=== PATIENT | female | born 1985 | race Caucasian/White ===

== ENCOUNTER 2018-03-21 07:42 | Emergency (ER) | payer MEDICAID ==
[~2018-03-21] VITALS: Ht 157.5 cm; Wt 156.9 kg
[2018-03-21 07:48] VITALS: BP 145/96
[2018-03-21] MEDS ORDERED: LEVOFLOXACIN 750 MG/D5W PREMIX 150 ML IV ONE (08:05)
[2018-03-21] MEDS ORDERED: NACL 0.9% 1,000 ML IV ONE (08:05)
[2018-03-21 08:24] LABS: BASOPHILS # (AUTO) 0.1 K/uL (0.00-0.22); BASOPHILS % (AUTO) 0.9 % (0.0-2.0); EOSINOPHILS # (AUTO) 0.1 K/uL (0-0.4); EOSINOPHILS % (AUTO) 0.8 % (0.0-4.0); HEMATOCRIT 36.9 % (36-48); HEMOGLOBIN 12.1 g/dL (12.0-16.0); LYMPHOCYTES # (AUTO) 1.5 K/uL (2.5-16.5); LYMPHOCYTES % (AUTO) 20.6 % (20.5-51.1); MEAN CORPUSCULAR HEMOGLOBIN 27 pg (27-31); MEAN CORPUSCULAR HGB CONC 33 g/dL (33-37); MEAN CORPUSCULAR VOLUME 80.5 fL (80-94); MONOCYTES # (AUTO) 0.5 K/uL (0.8-1.0); MONOCYTES % (AUTO) 6.4 % (1.7-9.3); NEUTROPHILS # (AUTO) 5.4 K/uL (1.8-7.7); NEUTROPHILS % (AUTO) 71.3 % (42.2-75.2); PLATELET COUNT (AUTO) 183 K/uL (140-450); RED BLOOD CELL COUNT(AUTO) 4.58 MIL/uL (4.20-5.40); WHITE BLOOD COUNT (AUTO) 7.5 K/uL (4.8-10.8)
[2018-03-21 08:30] LABS: ANION GAP 12.6 (8-16); CARBON DIOXIDE 24.2 mmol/L (21-32); CREATININE 0.6 mg/dL (0.6-1.3); POTASSIUM 3.8 mmol/L (3.5-5.1)
[2018-03-21 08:36] LABS: ALBUMIN 2.5 g/dL (3.4-5.0); TOTAL BILIRUBIN 0.4 mg/dL (0.0-1.0)
[2018-03-21 08:45] LABS: BILIRUBIN,URINE NEGATIVE (NEGATIVE); BLOOD, URINE 1+ (NEGATIVE); COLOR,URINE YELLOW (YELLOW); LEUKOCYTE ESTERASE ,URINE NEGATIVE (NEGATIVE); NITRITE, URINE NEGATIVE (NEGATIVE); PH,URINE 6.5 (5.0-9.0); UGLUCOSE NEGATIVE (NEGATIVE)
[2018-03-21 08:46] LABS: APPEARANCE,URINE SLIGHTLY HAZY (CLEAR)
[2018-03-21 08:49] LABS: RBC,URINE 3-10 (FEW) /HPF (0-5); WBC,URINE 0-5 (RARE) /HPF (0-5)
[2018-03-21 09:54] VITALS: BP 144/97
== END 2018-03-21 09:54 | disposition home or self-care (01) ==
LOC: MED 07:42
DX: L03.115 Cellulitis of right lower limb (principal); E11.9 Type 2 diabetes mellitus without complications; R74.0 Nonspecific elevation of levels of transaminase and lactic acid dehydrogenase [LDH]
CPT/HCPCS: 36415; 80053; 81001; 83605; 85025; 87040; 96365; 96366; 99285; J1956; 99284

== ENCOUNTER 2019-08-27 20:48 | Emergency (ER) | payer MEDICAID ==
[~2019-08-27] VITALS: Ht 160 cm; Wt 145.1 kg
[2019-08-27 21:29] VITALS: BP 145/89
--- NOTE | 2019-08-27 21:37 | NUR ---
PT AMBULATED TO ER BED 12
--- NOTE | 2019-08-27 21:37 | NUR ---
PT AMBULATED TO BED 12
--- NOTE | 2019-08-27 21:40 | NUR ---
33 Y/O FEMALE PRESENTS TO ED, C/O TOOTACHE THAT STARTED THIS MORNING. PAIN IS 8/10 ON LEFT SIDE OF JAW; DOES NOT RADIATE. TOOK TYLENOL AND NORCO WITH NO RELIEF. NO TRAUMA NOTED. PT ERMD AWARE. WILL CONTINUE TO MONITOR.
[2019-08-27] MEDS ORDERED: MORPHINE SULFATE 2 MG/ML SYR IM ONE (22:05)
[2019-08-27] MEDS ORDERED: AMOXICILLIN 500 MG CAP PO ONE (22:05)
[2019-08-27 23:11] VITALS: BP 151/77
--- NOTE | 2019-08-27 23:11 | NUR ---
PT DISCHARGED WITH PAPERWORK. RX MOTRIN, TRAMADOL, AMOXICILLIN. EDUCATED PT REGARDING MEDICATIONS AND S/E. EDUCATED PT REGARDING D/C DIAGNOSIS AND INSTRUCTIONS. PT VERBALIZED UNDERSTANDING OF TEACHING. TOLD PT TO FOLLOW UP WITH PCP AND WHEN TO RETURN TO ED. PT VSS. ALL QUESTIONS ANSWERED.
== END 2019-08-27 23:11 | disposition home or self-care (01) ==
LOC: MED 20:48
DX: K04.7 Periapical abscess without sinus (principal); R03.0 Elevated blood-pressure reading, without diagnosis of hypertension; E11.9 Type 2 diabetes mellitus without complications
CPT/HCPCS: 96372; 99283; J2270

== ENCOUNTER 2019-11-18 19:41 | Emergency (ER) | payer MEDICAID ==
[~2019-11-18] VITALS: Ht 160 cm; Wt 146.7 kg
[2019-11-18 19:45] VITALS: BP 136/96
--- NOTE | 2019-11-18 19:52 | NUR ---
PT AMBULATES TO LOBBY WITH UPRIGHT, STEADY GAIT. ACCOMPANIED BY .
--- NOTE | 2019-11-18 20:41 | NUR ---
AMBULATES TO CHAIR C WITH .
--- NOTE | 2019-11-18 21:00 | NUR ---
PATIENT SITTING UP IN CHAIR. BIB SELF REPORTS FALLING 1 WEEK AGO AND HAVING PERSISTANT PAIN IN LEFT ANKLE. STATES PAIN IS WORST WHEN SHE IS WALKING ON IT. AMB WITH STEADY GAIT. MILD SWELLING NOTED. FULL ROM, +CMS. NO OTHER SYMPTOMS REPORTED AT THIS TIME.
--- NOTE | 2019-11-18 21:48 | NUR ---
gel stirrup splint applied, patient educated on proper care. +cms before and after spint applied.
[2019-11-18 21:51] VITALS: BP 128/92
--- NOTE | 2019-11-18 21:51 | NUR ---
Patient discharged with v/s stable. Written and verbal after care instructions given and explained. Patient alert, oriented and verbalized understanding of instructions. Ambulatory with steady gait. Splint in place, +cms. All questions addressed prior to discharge. ID band removed. Patient advised to follow up with PMD. Rx of TYLENOL #3, NAPROSYN given. Patient educated on indication of medication including possible reaction and side effects. Opportunity to ask questions provided and answered.
== END 2019-11-18 21:51 | disposition home or self-care (01) ==
LOC: MED 19:41
DX: S93.402A Sprain of unspecified ligament of left ankle, initial encounter (principal); E11.9 Type 2 diabetes mellitus without complications; I10 Essential (primary) hypertension; Z98.890 Other specified postprocedural states; W01.0XXA Fall on same level from slipping, tripping and stumbling without subsequent striking against object, initial encounter; Y93.89 Activity, other specified; Y92.89 Other specified places as the place of occurrence of the external cause; Y99.8 Other external cause status
CPT/HCPCS: 29515; 73610; 99283